=== PATIENT | male | born 1990 | race African-American/Black ===

== ENCOUNTER 2022-01-09 09:54 | Emergency (ER) | payer OTHER ==
[2022-01-09] MEDS ORDERED: PROMETHAZINE 25 MG TABLET ONE (10:54)
--- NOTE | 2022-01-09 11:27 | EDPHYS ---
Physician Documentation [facility] Name: Segundo Henderson Age: 31 yrs Sex: Male : 1990 Arrival Date: 01/09/2022 Time: 09:55 Bed IW1 Private MD: ED Physician Alex Schreiber HPI: 01/09 10:47 This 31 yrs old Black Male presents to ER via Ambulatory with complaints of Vomiting. snw 10:47 The patient presents to the emergency department with nausea, that is moderate, snw vomiting. Onset: The symptoms/episode began/occurred suddenly, this morning. Possible causes: bad food exposure, possibly bad restaurant food. Associated signs and symptoms: Pertinent positives: vomiting. Severity of symptoms: At their worst the symptoms were mild in the emergency department the symptoms are unchanged. The patient has not experienced similar symptoms in the past. The patient has not recently seen a physician. Historical: - Allergies: 10:39 Pears; jh5 10:39 Bees; jh5 - Immunization history:: Adult Immunizations up to date. - Social history:: Smoking status: Patient denies any tobacco usage or history of. ROS: 10:47 Constitutional: Negative for fever, chills, and weight loss, Eyes: Negative for injury, snw pain, redness, and discharge, ENT: Negative for injury, pain, and discharge, Neck: Negative for injury, pain, and swelling, Cardiovascular: Negative for chest pain, palpitations, and edema, Respiratory: Negative for shortness of breath, cough, wheezing, and pleuritic chest pain, Back: Negative for injury and pain, : Negative for injury, bleeding, discharge, and swelling, MS/Extremity: Negative for injury and deformity, Skin: Negative for injury, rash, and discoloration, Neuro: Negative for headache, weakness, numbness, tingling, and seizure. 10:47 Abdomen/GI: Positive for vomiting. Exam: 10:46 Constitutional: This is a well developed, well nourished patient who is awake, alert, snw and in no acute distress. Head/Face: Normocephalic, atraumatic. Eyes: Pupils equal round and reactive to light, extra-ocular motions intact. Lids and lashes normal. Conjunctiva and sclera are non-icteric and not injected. Cornea within normal limits. Periorbital areas with no swelling, redness, or edema. Neck: Trachea midline, no thyromegaly or masses palpated, and no cervical lymphadenopathy. Supple, full range of motion without nuchal rigidity, or vertebral point tenderness. No Meningismus. Chest/axilla: Normal chest wall appearance and motion. Nontender with no deformity. No lesions are appreciated. Cardiovascular: Regular rate and rhythm with a normal S1 and S2. No gallops, murmurs, or rubs. Normal PMI, no JVD. No pulse deficits. Respiratory: Lungs have equal breath sounds bilaterally, clear to auscultation and percussion. No rales, rhonchi or wheezes noted. No increased work of breathing, no retractions or nasal flaring. Abdomen/GI: Soft, non-tender, with normal bowel sounds. No distension or tympany. No guarding or rebound. No evidence of tenderness throughout. Back: No spinal tenderness. No costovertebral tenderness. Full range of motion. Skin: Warm, dry with normal turgor. Normal color with no rashes, no lesions, and no evidence of cellulitis. MS/ Extremity: Pulses equal, no cyanosis. Neurovascular intact. Full, normal range of motion. Neuro: Awake and alert, GCS 15, oriented to person, place, time, and situation. Cranial nerves II-XII grossly intact. Motor strength 5/5 in all extremities. Sensory grossly intact. Cerebellar exam normal. Normal gait. Psych: Awake, alert, with orientation to person, place and time. Behavior, mood, and affect are within normal limits. 10:46 ENT: Ear canal(s): erythema, that is moderate, of the left canal, TM's: are normal, Nose: is normal, Mouth: is normal, Posterior pharynx: erythema, that is mild. Vital Signs: 10:34 BP 145 / 84; Pulse 76; Resp 16; Temp 98.4; Pulse Ox 100% ; Weight 99.34 kg; Height 5 jh5 ft. 7 in. (170.18 cm); Pain 5/10; 10:34 Body Mass Index 34.30 (99.34 kg, 170.18 cm) jh5 MDM: 10:43 Patient medically screened. snw 11:26 Data reviewed: vital signs, nurses notes. Data interpreted: Pulse oximetry: on room air snw is 100 %. Counseling: I had a detailed discussion with the patient and/or guardian regarding: the historical points, exam findings, and any diagnostic results supporting the discharge/admit diagnosis, lab results, the need for outpatient follow up, to return to the emergency department if symptoms worsen or persist or if there are any questions or concerns that arise at home. Special discussion: I have referred the patient to see his PCP for further evaluation of high blood pressure. Based on the history and exam findings, there is no indication for further emergent testing or inpatient evaluation. I discussed with the patient/guardian the need to see the primary care provider for further evaluation of the symptoms. 01/09 10:46 Order name: Strep; Complete Time: 11:25 snw 01/09 11:23 Order name: Throat Culture EDMS Administered Medications: 10:54 Drug: Phenergan (promethazine) 25 mg Route: PO; 5 11:12 Follow up: Response: No adverse reaction iw Disposition: 01/10 07:26 Co-signature as Attending Physician, Alex Schreiber MD I agree with the assessment and rt plan of care. Disposition Summary: 01/09/22 11:26 Discharge Ordered Location: Home snw Condition: Stable snw Diagnosis - Vomiting, unspecified snw Followup: snw - With: Emergency Department - When: As needed - Reason: Worsening of condition Followup: snw - With: Private Physician - When: 5 - 6 days - Reason: Recheck today's complaints, Continuance of care, Re-evaluation by your physician Discharge Instructions: - Discharge Summary Sheet snw - Nausea and Vomiting, Adult snw - Rehydration, Adult snw Forms: - Medication Reconciliation Form snw - Work release form snw - Thank You Letter snw - Antibiotic Education snw - Prescription Opioid Use snw Prescriptions: - promethazine 25 mg Oral Tablet - take 1 tablet by ORAL route every 6 hours As needed; 20 tablet; Refills: 0, snw Product Selection Permitted Signatures: Dispatcher [employer] EDJohana Harris FNP-C FNP-Csnw Pilar Rod, RN RN jh5 Alex Schreiber MD MD rt Sushma Caceres RN iw
--- NOTE | 2022-01-09 11:27 | ER ---
Nurse's Notes [facility] Name: Segundo Henderson Age: 31 yrs Sex: Male : 1990 Arrival Date: 01/09/2022 Time: 09:55 Bed IW1 Private MD: Diagnosis: Vomiting, unspecified Presentation: 01/09 10:34 Chief complaint: Patient states: I have thrown up 4 times this morning, it looked like jh5 my dinner from last night. Coronavirus screen: Vaccine status: Patient reports receiving the 2nd dose of the covid vaccine. Client denies travel out of the [place] in the last 14 days. Ebola Screen: Patient negative for fever greater than or equal to 101.5 degrees Fahrenheit, and additional compatible Ebola Virus Disease symptoms Patient denies exposure to infectious person. Patient denies travel to an Ebola-affected area in the 21 days before illness onset. Initial Sepsis Screen: Does the patient meet any 2 criteria? No. Patient's initial sepsis screen is negative. Does the patient have a suspected source of infection? No. Patient's initial sepsis screen is negative. Risk Assessment: Do you want to hurt yourself or someone else? Patient reports no desire to harm self or others. 10:34 Method Of Arrival: Ambulatory [facility] 10:34 Acuity: EVGENY 3 jh5 Triage Assessment: 10:39 General: Appears in no apparent distress. slender, well groomed, well developed, well jh5 nourished, Behavior is calm, cooperative, appropriate for age. Pain: Denies pain. GI: Reports. Historical: - Allergies: 10:39 Pears; jh5 10:39 Bees; jh5 - Immunization history:: Adult Immunizations up to date. - Social history:: Smoking status: Patient denies any tobacco usage or history of. Screenin:40 Abuse screen: Denies threats or abuse. Denies injuries from another. Nutritional iw screening: No deficits noted. Tuberculosis screening: No symptoms or risk factors identified. Fall Risk None identified. Assessment: 11:45 Reassessment: Patient appears in no apparent distress at this time. Patient and/or iw family updated on plan of care and expected duration. Pain level reassessed. Patient is alert, oriented x 3, equal unlabored respirations, skin warm/dry/pink. 11:45 GI: Abdomen is flat. iw Vital Signs: 10:34 BP 145 / 84; Pulse 76; Resp 16; Temp 98.4; Pulse Ox 100% ; Weight 99.34 kg; Height 5 5 ft. 7 in. (170.18 cm); Pain 5/10; 10:34 Body Mass Index 34.30 (99.34 kg, 170.18 cm) [facility] ED Course: 09:55 Patient arrived in ED. as 10:20 Johana Hernandez FNP-C is [facility]. snw 10:20 Alex Schreiber MD is Attending Physician. snw 10:39 Triage completed. 5 10:54 Arm band placed on right wrist. [facility] 11:11 Sushma Caceres, RN is Primary Nurse. iw 11:45 Patient has correct armband on for positive identification. iw 11:45 No provider procedures requiring assistance completed. Patient did not have IV access iw during this emergency room visit. Administered Medications: 10:54 Drug: Phenergan (promethazine) 25 mg Route: PO; [facility] 11:12 Follow up: Response: No adverse reaction iw Medication: 11:45 VIS not applicable for this client. iw Outcome: 11:26 Discharge ordered by . snw 11:46 Discharged to home ambulatory. iw 11:46 Condition: good 11:46 Discharge instructions given to patient, Instructed on discharge instructions, follow up and referral plans. medication usage, Demonstrated understanding of instructions, follow-up care, medications, Prescriptions given X 1. 11:46 Patient left the ED. iw Signatures: Johana Hernandez FNP-C [employer]PER[employer]OR-Csnw Reyna [place] as Sushma Caceres, RN RN Pilar Rod RN RN [facility]
[2022-01-09 11:50] VITALS: BP 145/84; TEMP 98.4; O2SAT 100
== END 2022-01-09 11:46 | disposition home or self-care (01) ==
LOC: ER 09:54
DX: R11.10 Vomiting, unspecified (principal)
CPT/HCPCS: 87070; 87081; 99283; Q0169